=== PATIENT | female | born 1930 | race Caucasian/White ===

== ENCOUNTER 2018-10-29 18:49 | Emergency (ER) | payer MEDICARE, MEDICAID ==
[~2018-10-29] VITALS: Ht 157.5 cm; Wt 47.6 kg
[2018-10-29 18:55] VITALS: BP 95/54
--- NOTE | 2018-10-29 18:55 | NUR ---
ED Nurse Note: Pt BIBA from home per grandson's request due to AMS. Pt is [place] speaking and does not respond verbally but only flat affect. grandson at bedside is historian. per grandson pt is aao x1-2 but was not able to assess due to flat affect and not verbalizing. skin clean and intact. pt came with Rt forearm iv 20g. pt is waiting to be seen by doctor.
--- NOTE | 2018-10-29 19:10 | NUR ---
HAND-OFF: Report given to MARK Cade. pt has not been seen by doctor yet.
[2018-10-29] MEDS ORDERED: Sodium Chloride 500ML 500 ML IV ONE (19:19)
[2018-10-29 20:21] LABS: HEMATOCRIT 22.7 % (37.0-47.0); MEAN CORPUSCULAR VOLUME 78 FL (80-99); PLATELET COUNT 347 K/UL (150-450); RED BLOOD COUNT 2.93 M/UL (4.20-5.40); RED CELL DISTRIBUTION WIDTH 15.9 % (11.6-14.8); WHITE BLOOD COUNT 21.9 K/UL (4.8-10.8)
[2018-10-29 20:32] LABS: AMMONIA 26 umol/L (11-32); ANION GAP 11 mmol/L (5-15); BLOOD UREA NITROGEN 47 mg/dL (7-18); CALCIUM 8.9 MG/DL (8.5-10.1); CARBON DIOXIDE 23 MMOL/L (21-32); CHLORIDE 101 MMOL/L (98-107); CREATININE 1.5 MG/DL (0.55-1.30); POTASSIUM 4.9 MMOL/L (3.5-5.1); SODIUM 135 MMOL/L (136-145)
[2018-10-29 20:37] LABS: ALANINE AMINOTRANSFERASE 33 U/L (12-78); ALBUMIN 2.4 G/DL (3.4-5.0); ALBUMIN/GLOBULIN RATIO 0.7 (1.0-2.7); ALKALINE PHOSPHATASE 162 U/L (46-116); ASPARTATE AMINO TRANSFERASE 37 U/L (15-37); BILIRUBIN,TOTAL 0.9 MG/DL (0.2-1.0)
[2018-10-29 20:56] LABS: APPEARANCE,URINE CLOUDY; BILIRUBIN, URINE 2+ (NEGATIVE); COLOR,URINE BROWN; GLUCOSE, URINE (UA) NEGATIVE (NEGATIVE); KETONES,URINE 1+ (NEGATIVE); LEUKOCYTE ESTERASE ,URINE 2+ (NEGATIVE); NITRITE,URINE NEGATIVE (NEGATIVE); PH,URINE 5 (4.5-8.0); PROTEIN,URINE 3+ (NEGATIVE); UROBILINOGEN,URINE 12 MG/DL (0.0-1.0)
--- NOTE | 2018-10-29 21:40 | NUR ---
ER Nurse Note: Pt is withdrawn, not adhearent with treatment plan. VSS, no signs of distress. Grandson becoming aggitated and want to take pt home. ERMD notified. Will continue to montior
[2018-10-29 22:00] VITALS: BP 110/62
[2018-10-29] MEDS ORDERED: cefTRIAXone 1 GM in NS 55 ML IVPB ONE (22:00)
--- NOTE | 2018-10-29 22:00 | NUR ---
ER Nurse Note: Pt and grandson made the decision to AMA. ERMD notifed and aware; explained the risks of AMA. Grandson understood but decided to AMA. Pt refused medication d/t leaving against medical advice. IV removed; site clean and bandaged. ID band removed. Instructed pt to seek help if symptoms does not improve. All safety measures met; pt left with all belongings.
[2018-10-29] MEDS ORDERED: CEPHALEXIN500 MG ORAL (22:08)
[2018-10-29] MEDS ORDERED: FERROUS SULFAT325 MG ORAL (22:08)
[2018-10-29] MEDS ORDERED: ATIVAN1 MG ORAL (22:08)
--- NOTE | 2018-10-30 08:58 | Diagnostic Imaging Report ---
Indications: Altered mental status Technique: Spiral acquisitions obtained through the brain. Angled axial and coronal 5 x 5 mm slices were reconstructed. Total dose length product 1344.14 mGycm. CTDI vol(s) 70.38 mGy. Dose reduction achieved using automated exposure control Comparison: None. Findings: There is age-related enlargement of the ventricles and extra axial CSF spaces. There is periventricular deep white matter low-attenuation consistent with chronic ischemic change. No acute intracranial hemorrhage or edema, mass effect, nor midline shift. There is some sphenoid sinus disease. The mastoids are not pneumatized. The calvarium is intact. The orbits are unremarkable. Streak artifact from dental amalgam limits evaluation of the posterior fossa structures Impression: Chronic and age-related changes. Negative for acute intracranial bleed or mass effect Limited exam as described This agrees with the preliminary interpretation provided overnight by Dr. Mckay The CT scanner at [facility] is accredited by the [employer] and the scans are performed using protocols designed to limit radiation exposure to as low as reasonably achievable to attain images of sufficient resolution adequate for diagnostic evaluation.
--- NOTE | 2018-10-30 09:10 | Diagnostic Imaging Report ---
Indication: Shortness of breath Technique: One view of the chest Comparison: None Findings: Lungs and pleural spaces are clear. The heart is enlarged. The aorta is tortuous and calcified. There is suggestion of a retrocardiac hiatal hernia. Surgical clips project over the left hemidiaphragm Impression: No acute process Cardiomegaly Possible hiatal hernia Evidence of prior upper abdominal surgery
--- NOTE | 2018-10-31 07:20 | Emergency Room Report ---
History of Present Illness General Chief Complaint: Altered Mental Status Source: Patient, Family Member Present Illness HPI 87-year-old female brought to ED for evaluation. Grandson at bedside states that patient has not been acting normally for the last 2 weeks. He is refusing to talk to family and locking herself in her room. Family states that patient was evaluated by PMD and was "told to go to the emergency room". On arrival patient is not answering questions. No signs of distress. Grandson is concerned about dementia. Denies fevers or chills. Denies cough. No other aggravating relieving factors. No other associated symptoms Allergies: Coded Allergies: No Known Allergies (Unverified , 10/29/18) Patient History Past Medical History: none Past Surgical History: none Pertinent Family History: none Social History: Denies: smoking, alcohol use, drug use Now: No Immunizations: UTD Reviewed Nursing Documentation: PMH: Agreed; PSxH: Agreed Nursing Documentation-PMH Past Medical History Deferred: Pt Cognitively Impaired Past Medical History: No Stated History Review of Systems All Other Systems: limited Physical Exam Vital Signs Date Time Temp Pulse Resp B/P (MAP) Pulse Ox O2 Delivery O2 Flow Rate FiO2 10/29/18 18:43 105 23 94/59 100 Room Air 10/29/18 18:55 97.6 10/29/18 18:55 99 Sp02 EP Interpretation: reviewed, normal General Appearance: thin, other - not answering questions Head: normocephalic Eyes: bilateral eye normal inspection, bilateral eye PERRL ENT: hearing grossly normal, normal pharynx, no angioedema, normal voice Neck: normal inspection Respiratory: chest non-tender, lungs clear, normal breath sounds, speaking full sentences Cardiovascular #1: regular rate, rhythm, no edema Gastrointestinal: normal bowel sounds, non tender, soft, non-distended, no guarding, no rebound Rectal: deferred Genitourinary: no CVA tenderness Musculoskeletal: normal inspection Neurologic: other - not answering questions Psychiatric: other - not answering questions Skin: normal inspection Lymphatic: normal inspection Medical Decision Making Diagnostic Impression: Primary Impression: UTI (urinary tract infection) Qualified Codes: N39.0 - Urinary tract infection, site not specified Additional Impressions: Anemia Qualified Codes: D64.9 - Anemia, unspecified Anxiety Renal insufficiency Altered mental status Qualified Codes: R41.82 - Altered mental status, unspecified ER Course Hospital Course 87-year-old female presenting to ED with change in behavior, not eating and yelling at family Differential diagnoses include: Pneumonia, UTI, dehydration, CVA/TIA Clinical course Patient placed on stretcher. On playground monitor with stable vitals are ED course. After initial history and physical, I ordered labs, IV fluids, EKG, chest x-ray,CT Head Labs - BUN/Cr elevated, marked leukocytosis, Hb 7.0, UA + bacteria CXR - no acute process CT head - no acute process Abx given. Discussed findings with family. They are unaware of patient's baseline labs. Recommend admission. Patient and family refused stating that "she will not do well in the hospital". Want to take her home to see her PMD Understands the risks of leaving. Patient has competency to make her own decisions. Signed AMA form. However I will provide prescriptions encouraged patient be seen by PMD immediately I feel this is a highly complex case requiring extensive working including EKG/ Rhythm strip, Xray/CT/US, Blood/urine lab work, repeat exams while in ED, and administration of strong opiates/narcotics for pain control, admission to hospital or close patient follow up. Diagnosis - UTI, anemia, anxiety, renal insufficiency, AMS patient left AMA Labs Test 10/29/18 19:50 10/29/18 20:25 10/29/18 21:33 White Blood Count 21.9 K/UL (4.8-10.8) Red Blood Count 2.93 M/UL (4.20-5.40) Hemoglobin 7.0 G/DL (12.0-16.0) Hematocrit 22.7 % (37.0-47.0) Mean Corpuscular Volume 78 FL (80-99) Mean Corpuscular Hemoglobin 23.8 PG (27.0-31.0) Mean Corpuscular Hemoglobin Concent 30.7 G/DL (32.0-36.0) Red Cell Distribution Width 15.9 % (11.6-14.8) Platelet Count 347 K/UL (150-450) Mean Platelet Volume 4.5 FL (6.5-10.1) Neutrophils (%) (Auto) % (45.0-75.0) Lymphocytes (%) (Auto) % (20.0-45.0) Monocytes (%) (Auto) % (1.0-10.0) Eosinophils (%) (Auto) % (0.0-3.0) Basophils (%) (Auto) % (0.0-2.0) Differential Total Cells Counted 100 Neutrophils % (Manual) 88 % (45-75) Lymphocytes % (Manual) 8 % (20-45) Monocytes % (Manual) 3 % (1-10) Eosinophils % (Manual) 0 % (0-3) Basophils % (Manual) 0 % (0-2) Band Neutrophils 1 % (0-8) Platelet Estimate Adequate Platelet Morphology Normal Polychromasia 1+ Hypochromasia 1+ Anisocytosis 1+ Microcytosis 1+ Sodium Level 135 MMOL/L (136-145) Potassium Level 4.9 MMOL/L (3.5-5.1) Chloride Level 101 MMOL/L (98-107) Carbon Dioxide Level 23 MMOL/L (21-32) Anion Gap 11 mmol/L (5-15) Blood Urea Nitrogen 47 mg/dL (7-18) Creatinine 1.5 MG/DL (0.55-1.30) Estimat Glomerular Filtration Rate mL/min (>60) Glucose Level 149 MG/DL (74-106) Calcium Level 8.9 MG/DL (8.5-10.1) Total Bilirubin 0.9 MG/DL (0.2-1.0) Aspartate Amino Transf (AST/SGOT) 37 U/L (15-37) Alanine Aminotransferase (ALT/SGPT) 33 U/L (12-78) Alkaline Phosphatase 162 U/L (46-116) Ammonia 26 umol/L (11-32) Total Protein 5.8 G/DL (6.4-8.2) Albumin 2.4 G/DL (3.4-5.0) Globulin 3.4 g/dL Albumin/Globulin Ratio 0.7 (1.0-2.7) Urine Color Brown Urine Appearance Cloudy Urine pH 5 (4.5-8.0) Urine Specific [place] 1.015 (1.005-1.035) Urine Protein 3+ (NEGATIVE) Urine Glucose (UA) Negative (NEGATIVE) Urine Ketones 1+ (NEGATIVE) Urine Blood 1+ (NEGATIVE) Urine Nitrite Negative (NEGATIVE) Urine Bilirubin 2+ (NEGATIVE) Urine Ictotest Negative (NEGATIVE) Urine Urobilinogen 12 MG/DL (0.0-1.0) Urine Leukocyte Esterase 2+ (NEGATIVE) Urine RBC 2-4 /HPF (0 - 2) Urine WBC 10-15 /HPF (0 - 2) Urine Squamous Epithelial Cells Few /LPF (NONE/OCC) Urine Bacteria Moderate /HPF (NONE) Prothrombin Time 10.1 SEC (9.30-11.50) Prothromb Time International Ratio 1.0 (0.9-1.1) Activated Partial Thromboplast Time 25 SEC (23-33) Lactic Acid Level 1.20 mmol/L (0.4-2.0) Chest X-Ray Diagnostic Results Chest X-Ray Diagnostic Results : Chest X-Ray Ordered: Yes # of Views/Limited/Complete: 1 View Indication: Other EP Interpretation: Yes Interpretation: no consolidation, no effusion, no pneumothorax, no acute cardiopulmonary disease Impression: No acute disease Electronically Signed by: Electronically signed by Sung Meneses MD CT/MRI/US Diagnostic Results CT/MRI/US Diagnostic Results : Imaging Test Ordered: CT Head Impression no acute process Last Vital Signs Date Time Temp Pulse Resp B/P (MAP) Pulse Ox O2 Delivery O2 Flow Rate FiO2 10/29/18 22:00 97.5 86 20 110/62 99 10/29/18 22:00 Room Air 99 Status: improved Disposition: AGAINST MEDICAL ADVICE Condition: Unknown Scripts Lorazepam* (ATIVAN*) 1 Mg Tablet 1 MG ORAL THREE TIMES A DAY, #10 TAB Prov: Sung Meneses MD 10/29/18 Ferrous Sulfate* (FERROUS SULFATE*) 325 Mg Tablet 325 MG ORAL DAILY, #30 TAB 0 Refills Prov: Sung Meneses MD 10/29/18 Cephalexin* (KEFLEX*) 500 Mg Capsule 500 MG ORAL EVERY 6 HOURS for 7 Days, CAP Prov: Sung Meneses MD 10/29/18 Patient Instructions: Altered Mental Status Sung Meneses MD Oct 31, 2018 07:20
== END 2018-10-29 22:00 | disposition left against medical advice (07) ==
LOC: EDBD 18:49 → EMR 18:55 → CANBEDREQ 22:08
DX: N39.0 Urinary tract infection, site not specified (principal); D64.9 Anemia, unspecified; F41.9 Anxiety disorder, unspecified; N28.9 Disorder of kidney and ureter, unspecified; R41.82 Altered mental status, unspecified
CPT/HCPCS: 36415; 70450; 71045; 80053; 81003; 82140; 83605; 85007; 85025; 85610; 85730; 87040; 87086; 99284; J0696; 87181